=== PATIENT | male | born 1960 | race Caucasian/White ===

== ENCOUNTER 2017-07-04 05:26 | Day surgery (SDC) | payer BC ==
[~2017-07-04] VITALS: Ht 177.8 cm; Wt 88.5 kg
--- NOTE | ~2017-07-04 | EGD ---
EGD REPORT [facility] [address] [place] [address] NAME: BERNABE YOUSSEF : 56 STATUS : REG [facility] PAT#: [id number] AGE: 57 ADM/REG DATE : 07/04/17 MR#: [id number] REPORT SERV DATE: 07/04/17 DICTATED BY: SHAMEKA DYER DATE: 07/04/17 REPORT STATUS : Draft TRANS[facility]IBED BY: [facility] DATE: 07/04/17 Endoscopy Center Patient Name: Bernabe Youssef Date of : 1960 Attending MD: SYLVIE DYER MD Procedure Date No Time: 07/04/2017 Procedure: Colonoscopy Indications: High risk colon cancer surveillance: Personal history of colonic polyps, Last colonoscopy: April 2012 Referring MD: VINNIE SEVERINO MD Medicines: See the Anesthesia note for documentation of the administered medications Complications: No immediate complications. Estimated blood loss: None. Procedure: Pre-Anesthesia Assessment: - ASA Grade Assessment: III - A patient with severe systemic disease. - Prior to the procedure, a History and Physical was performed, and patient medications and allergies were reviewed. The patient's tolerance of previous anesthesia was also reviewed. The risks and benefits of the procedure and the sedation options and risks were discussed with the patient. All questions were answered, and informed consent was obtained. Prior Anticoagulants: The patient has taken aspirin, last dose was 7 days prior to procedure. After reviewing the risks and benefits, the patient was deemed in satisfactory condition to undergo the procedure. After I obtained informed consent, the scope was passed under direct vision. Throughout the procedure, the patient's blood pressure, pulse, and oxygen saturations were monitored continuously. The PCF [id number] was introduced through the anus and advanced to the terminal ileum. The ileocecal valve, appendiceal orifice, terminal ileum and rectum were photographed. The entire colon was examined. The colonoscopy was performed without difficulty. The patient tolerated the procedure well. The quality of the bowel preparation was adequate. Findings: The perianal and digital rectal examinations were normal. The terminal ileum appeared normal. A sessile polyp was found in the proximal transverse colon. The polyp was 3 mm in size. The polyp was removed with a cold biopsy forceps. Resection and retrieval were complete. A sessile polyp was found in the mid transverse colon. The polyp was 5 EGD REPORT [address] [id number] [place]. [address] NAME: BERNABE YOUSSEF : [birth year] STATUS : REG [facility]#: [id number] AGE: 57 ADM/REG DATE : 07/04/17 MR#: [id number] REPORT SERV DATE: 07/04/17 DICTATED BY: SHAMEKA DYER DATE: 07/04/17 REPORT STATUS : Draft TRANSCRIBED BY: [employer] DATE: 07/04/17 mm in size. The polyp was removed with a cold snare. Resection and retrieval were complete. Four sessile polyps were found at the splenic flexure. The polyps were small in size. These polyps were removed with a piecemeal technique using a cold biopsy forceps. Resection and retrieval were complete. A sessile polyp was found in the sigmoid colon. The polyp was 5 mm in size. The polyp was removed with a cold snare. Resection and retrieval were complete. Non-bleeding internal hemorrhoids were found during retroflexion and were Grade I (internal hemorrhoids that do not prolapse). The exam was otherwise without abnormality on direct and retroflexion views. Impression: - The examined portion of the ileum was normal. - One 3 mm polyp in the proximal transverse colon. Resected and retrieved. - One 5 mm polyp in the mid transverse colon. Resected and retrieved. - Four small polyps at the splenic flexure. Resected and retrieved. - One 5 mm polyp in the sigmoid colon. Resected and retrieved. - Non-bleeding internal hemorrhoids. - The examination was otherwise normal on direct and retroflexion views. Recommendation: - Patient has a contact number available for emergencies. The signs and symptoms of potential delayed complications were discussed with the patient. Return to normal activities tomorrow. Written discharge instructions were provided to the patient. - Regular diet. - Discharge patient to home. - Continue present medications. - Await pathology results. - Repeat colonoscopy in 3 years for surveillance. Procedure Code(s): --- Professional --- 15066, Colonoscopy, flexible, proximal to splenic flexure; with removal of tumor(s), polyp(s), or other lesion(s) by snare technique 10496, 59, Colonoscopy, flexible, proximal to splenic flexure; with biopsy, single or multiple Diagnosis Code(s): --- Professional --- K64.0, First degree hemorrhoids D12.5, Benign neoplasm of sigmoid colon EGD REPORT [address] [address] NAME: BERNABE YOUSSEF : [birth year] STATUS : REG [facility] PAT#: [id number] AGE: 57 ADM/REG DATE : 07/04/17 MR#: [id number] REPORT SERV DATE: 07/04/17 DICTATED BY: SHAMEKA DYER DATE: 07/04/17 REPORT STATUS : Draft TRANSCRIBED BY: [employer] DATE: 07/04/17 D12.3, Benign neoplasm of transverse colon Z86.010, Personal history of colonic polyps CPT copyright 2013 [employer]. All rights reserved. The codes documented in this report are preliminary and upon box spring upholsterer review may be revised to meet current compliance requirements. SYLVIE DYER MD 07/04/2017 7:32 AM This report has been signed electronically. Number of Addenda: 0 Note Initiated On: 07/04/2017 6:48 AM Scope Withdrawal Time 0 hours 16 minutes 13 seconds [id number] [place] [address]
[~2017-07-04 05:26] MED LIST: ABILIFY10 PO; ASAB PO; GLUCPH PO; LYRICA50 PO; PRAVACHOL40 MG PO; PRILO PO; TRILEP300 PO
== END 2017-07-04 23:59 | disposition home or self-care (01) ==
LOC: DMU 05:26
PROVIDERS: Internal Medicine Gastroenterology
PROC: 0DBL8ZX Excision of Transverse Colon, Via Natural or Artificial Opening Endoscopic, Diagnostic (ICD-10-PCS; principal; 2017-07-04 07:00)
PROC: 0DBN8ZX Excision of Sigmoid Colon, Via Natural or Artificial Opening Endoscopic, Diagnostic (ICD-10-PCS; 2017-07-04 07:00)
DX: Z12.11 Encounter for screening for malignant neoplasm of colon (principal); D12.3 Benign neoplasm of transverse colon; K63.5 Polyp of colon; K64.0 First degree hemorrhoids; E11.9 Type 2 diabetes mellitus without complications; K21.9 Gastro-esophageal reflux disease without esophagitis; F41.9 Anxiety disorder, unspecified; E78.5 Hyperlipidemia, unspecified; I73.9 Peripheral vascular disease, unspecified; F31.9 Bipolar disorder, unspecified; Z87.891 Personal history of nicotine dependence; Z86.010 Personal history of colon polyps; Z95.828 Presence of other vascular implants and grafts; Z98.890 Other specified postprocedural states
CPT/HCPCS: 82962; 88305